=== PATIENT | female | born 1975 | race Caucasian/White ===

== ENCOUNTER 2019-03-03 06:28 | Emergency (ER) | payer MEDICAID, SELFPAY ==
[2019-03-03 06:31] VITALS: BP 116/77; PULSE 84; RESP 16; TEMP 36.8; O2SAT 100
--- NOTE | 2019-03-03 06:32 | ED.GENADUL_ITS ---
Discharge Plan Disposition Patient Disposition: HOME Condition: Good Discharge Details Chief Complaint: Urinary Clinical Impression: UTI (urinary tract infection) Primary Care Provider: CHARY MCLAIN ED Provider: Xu Schuler Home Meds and New Rx's Prescriptions: New cephalexin [Keflex] 500 mg capsule 500 mg PO BID 5 Days Qty: 10 RF: 0 No Action albuterol sulfate [Ventolin HFA] 8 GM HFA aerosol inhaler 2 puff Inhalation Q4H PRN RF: 0 fluticasone propion-salmeterol [Advair Diskus] 1 EACH blister with device 1 puff Inhalation BID Qty: 1 RF: 3 clonazepam 2 MG tablet 1 mg PO BID PRNQty: 14 RF: 0 epinephrine [EpiPen] 0.3 MG/0.3 ML auto-injector 0.3 mg IJ PRN PRN (Reason: Anaphylaxis) Qty: 1 RF: 0 ipratropium-albuterol 3 ML solution for nebulization 3 ml Inhalation Q4H PRN PRNQty: 60 RF: 0 dextroamphetamine-amphetamine [Adderall] 20 mg Tablet 20 mg PO TID RF: 0 Discharge Instructions Instructions: Urinary Tract Infection in Women (ED) Additional Instructions: Please take the antibiotic as directed. Please drink 10 to 12 cups of water per day. If you notice any worsening of your symptoms, or any new symptoms such as vomiting, diarrhea, fever, chills, shortness of breath, chest pain, numbness, weakness, or fainting , please return immediately to the emergency department for reevaluation. Please follow up with your primary care provider as soon as possible for reassessment and reevaluation. As always, it was a pleasure participating in your medical care today. Referrals: CHARY MCLAIN [Primary Care Provider] - Medical Decision Making This is a pleasant 43-year-old female who presents today for evaluation of UTI. Patient states that over the last 24 to 48 hours she is burning, dysuria and increased urinary frequency. She denies any red flags of fever, chills or flank pain. No abdominal pain or vomiting. Exam demonstrates a nontender abdomen, no suprapubic tenderness. We will evaluate for UTI, and reassess. No clinical evidence of pyelonephritis at this time. Patient's urinalysis has returned, patient's urinalysis is clinically consistent with UTI. She has no history of kidney stones. We will prescribe Keflex for home use. We discussed red flags which return, the importance of hydration and close follow-up. I have extensively reviewed the treatment plan and discharge instructions with the patient and their family. I have addressed all patient concerns at this time. The patient and family was made aware of what symptoms to monitor for that would warrant a return to the emergency department. Discussed the plan with the patient and family, they demonstrate verbal understanding and agreement with our assessment and plan at this time. HPI General Date/Time Provider Initiated Documentation: 03/03/19 06:30 . HPI Narrative: This is a pleasant 43-year-old female who presents today for evaluation of UTI-like symptoms. Patient states that for the last 24 to 48 omari rs she has had burning, dysuria, increased urinary frequency. She denies any history of vaginal discharge or history of STDs. She states that this feels similar to previous UTIs. She denies any flank pain, fever, chills, abdominal pain, nausea vomiting or diarrhea. She has no other complaints at this time. No other modifying factors. She denies any aggravating or relieving factors. She denies any radiation of the pain. Related Data Home Medications Medication Instructions Recorded Confirmed albuterol sulfate [Ventolin HFA] 2 puff INHALATION Q4H PRN inhaler 05/16/15 03/03/19 fluticasone propion-salmeterol 1 puff INHALATION BID #1 disk 08/24/15 03/03/19 [Advair Diskus] clonazepam 1 mg PO BID PRN #14 tab-cap 08/26/15 03/03/19 ipratropium-albuterol 3 ml INHALATION Q4H PRN PRN #60 08/09/16 03/03/19 vial epinephrine [Epipen] 0.3 mg IJ PRN PRN #1 auto.injct 12/14/17 03/03/19 cephalexin [Keflex] 500 mg PO BID 5 Days #10 cap 03/03/19 dextroamphetamine-amphetamine 20 mg PO TID 03/03/19 03/03/19 [Adderall] Previous Rx's Medication Instructions Recorded ipratropium-albuterol 3 ml INHALATION Q4H PRN PRN #60 08/09/16 vial epinephrine [Epipen] 0.3 mg IJ PRN PRN #1 auto.injct 12/14/17 cephalexin [Keflex] 500 mg PO BID 5 Days #10 cap 03/03/19 Allergies Allergy/AdvReac Type Severity Reaction Status Date / Time prochlorperazine Allergy Severe rigidity Unverified 03/03/19 06:40 [From Compazine] prochlorperazine edisylate Allergy Severe rigidity Unverified 03/03/19 06:40 [From Compazine] prochlorperazine maleate Allergy Severe rigidity Unverified 03/03/19 06:40 [From Compazine] sulfamethoxazole Allergy Unverified 03/03/19 06:40 [From Bactrim] trimethoprim [From Bactrim] Allergy Unverified 03/03/19 06:40 Review of Systems Review of Systems All systems reviewed & are unremarkable except as noted in HPI and below PFSH Medical History (Updated 03/03/19 @ 06:36 by Kelly Peoples) ADHD (Acute) Anxiety and depression Asthma HGSIL (high grade squamous intraepithelial dysplasia) Family History Mother Essential hypertension Grandmother Alcohol abuse Essential hypertension Personal history of malignant neoplasm Grandfather Personal history of malignant neoplasm Social History Smoking/Tobacco Use Status: Current every day Alcohol Intake: current Alcohol Intake frequency: holidays/special occasions only Alcohol type: beer Drug use: Daily Substance use type: marijuana Do you feel safe in your relationship?: Yes Exam Narrative Exam Narrative: 1.Const: Well-nourished, Well-developed, appearing stated age 2.Eyes: PERRL, no conjunctival injection, and symmetrical lids. 3.ENT: Atraumatic external nose and ears. Moist MM. Neck: Symmetric, trachea midline, No thyromegaly. 4.CVS: +S1/S2, No murmurs or gallops. Peripheral pulses 2+ and equal in all extremities. Brisk capillary refill in all extremities. 5.RESP: Unlabored respiratory effort. Clear to auscultation bilaterally. No wheezes rales or rhonchi 6.GI: Soft, Nontender/Nondistended, No hepatosplenomegaly. No guarding or rebound. No flank, CVA, or suprapubic tenderness. 7.MSK: Normocephalic/Atraumatic, Extremities w/o deformity or ttp No cyanosis or clubbing, Normal movement of all extremities 8.Skin: Warm, Dry. No rashes or lesions. 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 Sensation grossly intact, no focal neurologic deficits. 10.Psych: (AAO) x3. Appropriate mood and affect
[2019-03-03 06:45] LABS: Bilirubin Small (Negative); Blood Moderate (Negative); Clarity Clear (Clear); Glucose 100 mg/dL (Negative); Ketones 15 mg/dL (Negative); Leukocyte Esterase Small (Negative); Nitrite Positive (Negative); Specific Gravity >= 1.030 (1.005-1.025); pH 5.5 (5-8)
[2019-03-03 07:01] LABS: Bacteria Rare HPF (Negative); C & S Indicated? Yes; Casts Negative LPF (Negative); Crystals Moderate Uric Acid HPF (Negative); Epithelial Cells Moderate HPF (Negative); Mucus Trace (Negative)
[2019-03-03] MEDS: Cephalexin 500 MG CAP PO (07:11)
== END 2019-03-03 07:15 | disposition home or self-care (01) ==
PROVIDERS: Emergency Provider Student in an Organized Health Care Education/Training Program; PCP Nurse Practitioner Adult Health
DX: N39.0 Urinary tract infection, site not specified (principal); B96.20 Unspecified Escherichia coli [E. coli] as the cause of diseases classified elsewhere
CPT/HCPCS: 87077; 99283; 81003; 81015; 87086; 87186

== ENCOUNTER 2019-06-14 07:25 | Emergency (ER) | payer MEDICAID, SELFPAY ==
[2019-06-14 07:33] VITALS: BP 134/84; PULSE 95; RESP 16; TEMP 36.7; O2SAT 100
--- NOTE | 2019-06-14 07:41 | ED.GENADUL_ITS ---
Discharge Plan Disposition Patient Disposition: HOME Condition: Good Discharge Details Chief Complaint: Urinary Clinical Impression: UTI (urinary tract infection) Primary Care Provider: Maxine Kwan ED Provider: Xu Schuler Home Meds and New Rx's Prescriptions: New cephalexin [Keflex] 500 mg capsule 500 mg PO QID 7 Days Qty: 28 RF: 0 No Action albuterol sulfate [Ventolin HFA] 8 GM HFA aerosol inhaler 2 puff Inhalation Q4H PRN RF: 0 fluticasone propion-salmeterol [Advair Diskus] 1 EACH blister with device 1 puff Inhalation BID Qty: 1 RF: 3 clonazepam 2 MG tablet 1 mg PO BID PRNQty: 14 RF: 0 epinephrine [EpiPen] 0.3 MG/0.3 ML auto-injector 0.3 mg IJ PRN PRN (Reason: Anaphylaxis) Qty: 1 RF: 0 ipratropium-albuterol 3 ML solution for nebulization 3 ml Inhalation Q4H PRN PRNQty: 60 RF: 0 dextroamphetamine-amphetamine [Adderall] 20 mg Tablet 20 mg PO TID RF: 0 Discharge Instructions Instructions: Urinary Tract Infection in Women (ED) Additional Instructions: At this time he do show evidence of urinary tract infection. Please take the antibiotic as directed. Please continue to drink plenty of cranberry juice. We will send a referral to the local urologist Dr. Esparza. He will be contacted by their office. Will likely be 1 to 2 months or more until follow-up. If you notice any worsening of your symptoms, or any new symptoms such as vomiting, diarrhea, fever, chills, shortness of breath, chest pain, numbness, weakness, or fainting , please return immediately to the emergency department for reevaluation. Please follow up with your primary care provider as soon as possible for reassessment and reevaluation. As always, it was a pleasure participating in your medical care today. Referrals: Maxine Kwan [Primary Care Provider] - Medical Decision Making This is a pleasant 43-year-old female with a past medical history of previous urinary tract infections, appendectomy, asthma and ADHD. She presents today for signs and symptoms concerning with a urinary tract infection. 24 to 48 hours of burning, frequency, consistent with her previous urinary tract infections that she has had. Her last urinary tract infection was in February, at which time she had E. coli which was pansensitive. Physical exam demonstrates no clinical evidence of pyelonephritis. No flank or CVA tenderness. No fever. Urinalysis is obfuscated by Pyridium, however signs and symptoms and UA is clinically concerning for UTI. We will send for culture. We will start with Keflex, and recommend close follow-up. With the patient's recurrent UTIs her primary care provider has recommended urology follow-up, we will place an outpatient referral for her. I have extensively reviewed the treatment plan and discharge instructions with the patient. I have addressed all patient concerns at this time. The patient was made aware of what symptoms to monitor for that would warrant a return to the emergency department. Discussed the plan with the patient, they demonstrate verbal understanding and agreement with our assessment and plan at this time. HPI General Date/Time Provider Initiated Documentation: 06/14/19 07:27 . HPI Narrative: This is a pleasant 43-year-old female who presents today for evaluation of UTI-like symptoms. Patient states that for the last 24 to 48 hours she has had burning, dysuria, increased urinary frequency. She denies any history of vaginal discharge or history of STDs. She states that this feels similar to previous UTIs. She denies any flank pain, or fever, abdominal pain, nausea vomiting or diarrhea. She does admit to occasional chills. She has no other complaints at this time. No other modifying factors. She denies any aggravating or relieving factors. She denies any radiation of the pain. Of note her last urinary tract infection was in February. Her primary care provider has recommended that she follow-up with urology. This referral has not been placed. Related Data Home Medications Medication Instructions Recorded Confirmed albuterol sulfate [Ventolin HFA] 2 puff INHALATION Q4H PRN inhaler 05/16/15 03/03/19 fluticasone propion-salmeterol 1 puff INHALATION BID #1 disk 08/24/15 03/03/19 [Advair Diskus] clonazepam 1 mg PO BID PRN #14 tab-cap 08/26/15 03/03/19 ipratropium-albuterol 3 ml INHALATION Q4H PRN PRN #60 08/09/16 03/03/19 vial epinephrine [Epipen] 0.3 mg IJ PRN PRN #1 auto.injct 12/14/17 03/03/19 dextroamphetamine-amphetamine 20 mg PO TID 03/03/19 03/03/19 [Adderall] cephalexin [Keflex] 500 mg PO QID 7 Days #28 cap 06/14/19 Previous Rx's Medication Instructions Recorded ipratropium-albuterol 3 ml INHALATION Q4H PRN PRN #60 08/09/16 vial epinephrine [Epipen] 0.3 mg IJ PRN PRN #1 auto.injct 12/14/17 cephalexin [Keflex] 500 mg PO QID 7 Days #28 cap 06/14/19 Allergies Allergy/AdvReac Type Severity Reaction Status Date / Time prochlorperazine Allergy Severe rigidity Unverified 06/14/19 07:36 [From Compazine] prochlorperazine edisylate Allergy Severe rigidity Unverified 06/14/19 07:36 [From Compazine] prochlorperazine maleate Allergy Severe rigidity Unverified 06/14/19 07:36 [From Compazine] sulfamethoxazole Allergy Unverified 06/14/19 07:36 [From Bactrim] trimethoprim [From Bactrim] Allergy Unverified 06/14/19 07:36 General Stated Complaint: Urinary SUZI: 4 Review of Systems All systems reviewed & are unremarkable except as noted in HPI and below PFSH Medical History (Updated 03/03/19 @ 06:36 by Kelly Peoples) ADHD (Acute) Anxiety and depression Asthma HGSIL (high grade squamous intraepithelial dysplasia) Family History Mother Essential hypertension Grandmother Alcohol abuse Essential hypertension Personal history of malignant neoplasm pancreatic CA Grandfather Personal history of malignant neoplasm pancreatic CA Social History Smoking/Tobacco Use Status: Current every day Alcohol Intake: current Alcohol Intake frequency: holidays/special occasions only Alcohol type: beer Drug use: Daily Substance use type: marijuana Do you feel safe in your relationship?: Yes Exam Narrative Exam Narrative: 1.Const: Well-nourished, Well-developed, appearing stated age 2.Eyes: PERRL, no conjunctival injection, and symmetrical lids. 3.ENT: Atraumatic external nose and ears. Moist MM. Neck: Symmetric, trachea midline, No thyromegaly. 4.CVS: +S1/S2, No murmurs or gallops. Peripheral pulses 2+ and equal in all extremities. Brisk capillary refill in all extremities. 5.RESP: Unlabored respiratory effort. Clear to auscultation bilaterally. No wheezes rales or rhonchi 6.GI: Soft, Nontender/Nondistended, No hepatosplenomegaly. No guarding or rebound. No suprapubic tenderness. No flank or CVA tenderness. No pain at McBurney's point, negative Mendoza sign. 7.MSK: Normocephalic/Atraumatic, Extremities w/o deformity or ttp No cyanosis or clubbing, Normal movement of all extremities 8.Skin: Warm, Dry. No rashes or lesions. 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 Sensation grossly intact, no focal neurologic deficits. 10.Psych: (AAO) x3. Appropriate mood and affect Course Vital Signs Vital signs: Vital Signs Temperature 36.7 C 06/14/19 07:33 Pulse 95 H 06/14/19 07:33 Respiratory Rate 16 06/14/19 07:33 Blood Pressure 134/84 06/14/19 07:33 Pulse Oximetry 100 06/14/19 07:33 Temperature 36.7 C 06/14/19 07:33 Temperature Source Skin 06/14/19 07:33 Pulse 95 H 06/14/19 07:33 Respiratory Rate 16 06/14/19 07:33 Respiratory Effort Non-Labored 06/14/19 07:36 Blood Pressure 134/84 06/14/19 07:33 Blood Pressure Position Sitting 06/14/19 07:33 Pulse Oximetry 100 06/14/19 07:33 Oxygen Delivery Method Room Air 06/14/19 07:33 Oxygen Flow Rate 0 06/14/19 07:33 Pain Level 5 06/14/19 07:37
[2019-06-14] MEDS: Cephalexin 500 MG CAP PO (08:07)
[2019-06-14 08:16] LABS: Clarity Sl Cloudy (Clear)
[2019-06-14 08:19] LABS: Bacteria Moderate HPF (Negative); C & S Indicated? Yes; Casts Negative LPF (Negative); Crystals Negative HPF (Negative); Epithelial Cells Few HPF (Negative); Mucus Negative (Negative); Other Cells Few Transitional (Negative); WBC >50 HPF (0-5)
--- NOTE | 2019-06-14 08:32 | NUR.NOTE ---
Referral faxed to [facility], Urology.Nursing Note:
== END 2019-06-14 08:29 | disposition home or self-care (01) ==
PROVIDERS: Emergency Provider Student in an Organized Health Care Education/Training Program; PCP Nurse Practitioner Adult Health
DX: N39.0 Urinary tract infection, site not specified (principal); B96.20 Unspecified Escherichia coli [E. coli] as the cause of diseases classified elsewhere
CPT/HCPCS: 87077; 99283; 81003; 81015; 87086; 87186

== ENCOUNTER 2019-07-05 20:10 | Emergency (ER) | payer MEDICAID, SELFPAY ==
[2019-07-05 20:27] VITALS: BP 103/65; PULSE 80; RESP 16; TEMP 36.6; O2SAT 98
[2019-07-05 20:42] LABS: Bilirubin Negative (Negative); Blood Negative (Negative); Clarity Sl Cloudy (Clear); Glucose Negative (Negative); Ketones Trace mg/dL (Negative); Leukocyte Esterase Trace (Negative); Nitrite Positive (Negative); Specific Gravity >= 1.030 (1.005-1.025)
--- NOTE | 2019-07-05 20:44 | ED.GENADUL_ITS ---
Discharge Plan Disposition Patient Disposition: HOME Discharge Details Chief Complaint: Abd Prob Clinical Impression: Epigastric abdominal pain, Cystitis Primary Care Provider: Maxine Kwan ED Provider: Mitesh Chauhan Home Meds and New Rx's Prescriptions: New ciprofloxacin HCl 500 mg tablet 500 mg PO BID Qty: 14 RF: 0 phenazopyridine [Pyridium] 200 mg tablet 200 mg PO TID PRN (Reason: pain) Qty: 6 RF: 0 fluconazole [Diflucan] 150 mg tablet 150 mg PO DAILY 2 Days Qty: 2 RF: 0 Continued albuterol sulfate [Ventolin HFA] 8 GM HFA aerosol inhaler 2 puff Inhalation Q4H PRN RF: 0 fluticasone propion-salmeterol [Advair Diskus] 1 EACH blister with device 1 puff Inhalation BID Qty: 1 RF: 3 clonazepam 2 MG tablet 1 mg PO BID PRNQty: 14 RF: 0 epinephrine [EpiPen] 0.3 MG/0.3 ML auto-injector 0.3 mg IJ PRN PRN (Reason: Anaphylaxis) Qty: 1 RF: 0 ipratropium-albuterol 3 ML solution for nebulization 3 ml Inhalation Q4H PRN PRNQty: 60 RF: 0 dextroamphetamine-amphetamine [Adderall] 20 mg Tablet 20 mg PO TID RF: 0 Discharge Instructions Additional Instructions: you need to follow up with urology for your frequent uti's and the gas bubbles seen in your bladder on the cat scan follow up with your primary care provider within 1-2 weeks if you feel more ill, have high fevers or severe worsening pain return to the emergency department Medical Decision Making 43 yo female with hx of frequent uti's and was tx'd for one in June that grew pansensitive e coli, prior appendectomy, smoker, who comes in with cc of epigastric and suprapubic pain. She states she does have a hx of gerd/gastritis but feels this is worse. Denies radiation of pain, n/v, fevers, chest pain or sob. She has tenderness in the epgiastric area and rlq on exam. I suspect recurrent uti and gastritis, but given worsening symptoms will obtain renal colic ct to eval for kidney stone and also obtain lipase to eval for pancreatitis. Unlikely acs, heart score is 2 and pain is reproducible on exam. pt's blood work shows no acute findings, does have what appears to be recurrent uti. CT shows perinephric fat stranding of pancreas but has normal lipase level. Also has nonspecific retroperitoneal fluid collection and minute gas bubbles in the bladder which could be from infection vs fistula as she did not have catheter placed. Her epigastric pain has resolved so doubt pancreatitis. Carlos lrestart abx and she needs to f/u with urology for her recurrent uti's and the questionable fistula. She understands she needs to return immediately if worsening Differential Diagnosis Differential Diagnosis: pancreatitis, gastritis, cystitis, kidney stone Medical Records Medical records reviewed: Yes I reviewed the patient's medical records. Imaging Data Radiologic Study: Attestation: I personally reviewed and interpreted this imaging study as follows: Imaging: CT Scan Radiologist's impression: IMPRESSION: 1. Subtle peripancreatic fat stranding could reflect the presence of acute pancreatitis. 2. Nonspecific retroperitoneal fluid collection could also be as a result of acute pancreatitis. Other etiologies not excluded. 3. Minute gas bubbles in bladder, possibly introduced at the time of catheterization. Other etiologies including infection and fistula not excluded. 4. Perivesical fat stranding as could be seen with cystitis. Lab Data Lab results reviewed: Yes I reviewed the patient's lab results. ECG Data Attestation: I personally reviewed and interpreted this ECG (s) as follows: Prior ECG tracings: not available for review Interpretation: sinus rhythm, rate of 75, pr 162, no acute st t wave ischemic findings HPI General Mode of arrival: ambulatory . Date/Time Provider Initiated Documentation: 07/05/19 20:27 . Limitations to Documentation: no limitations . Information obtained by: patient . History of Present Illness 43 year old F presents to the emergency department with the chief complaint of epigastric and suprapubic pain, described as moderate, Patient started experiencing this day(s) (3) and it has been constant. No relieving factors improve symptom(s), No exacerbating factors reported . Patient did receive the following treatments prior to arrival, none Related Data Home Medications Medication Instructions Recorded Confirmed albuterol sulfate [Ventolin HFA] 2 puff INHALATION Q4H PRN inhaler 05/16/15 03/03/19 fluticasone propion-salmeterol 1 puff INHALATION BID #1 disk 08/24/15 03/03/19 [Advair Diskus] clonazepam 1 mg PO BID PRN #14 tab-cap 08/26/15 03/03/19 ipratropium-albuterol 3 ml INHALATION Q4H PRN PRN #60 08/09/16 03/03/19 vial epinephrine [EpiPen] 0.3 mg IJ PRN PRN #1 auto.injct 12/14/17 03/03/19 dextroamphetamine-amphetamine 20 mg PO TID 03/03/19 03/03/19 [Adderall] ciprofloxacin HCl 500 mg PO BID #14 tab 07/05/19 fluconazole [Diflucan] 150 mg PO DAILY 2 Days #2 tab 07/05/19 phenazopyridine [Pyridium] 200 mg PO TID PRN #6 tab 07/05/19 Previous Rx's Medication Instructions Recorded ipratropium-albuterol 3 ml INHALATION Q4H PRN PRN #60 08/09/16 vial epinephrine [EpiPen] 0.3 mg IJ PRN PRN #1 auto.injct 12/14/17 ciprofloxacin HCl 500 mg PO BID #14 tab 07/05/19 fluconazole [Diflucan] 150 mg PO DAILY 2 Days #2 tab 07/05/19 phenazopyridine [Pyridium] 200 mg PO TID PRN #6 tab 07/05/19 Allergies Allergy/AdvReac Type Severity Reaction Status Date / Time prochlorperazine Allergy Severe rigidity Unverified 06/14/19 07:36 [From Compazine] prochlorperazine edisylate Allergy Severe rigidity Unverified 06/14/19 07:36 [From Compazine] prochlorperazine maleate Allergy Severe rigidity Unverified 06/14/19 07:36 [From Compazine] sulfamethoxazole Allergy Unverified 06/14/19 07:36 [From Bactrim] trimethoprim [From Bactrim] Allergy Unverified 06/14/19 07:36 General Stated Complaint: Abd Prob SUZI: 3 Review of Systems All systems reviewed & are unremarkable except as noted in HPI and below Constitutional Constitutional: Denies chills, Denies fever(s) and Denies weakness Cardiovascular Cardiovascular: Denies chest pain and Denies dyspnea Respiratory Respiratory: Denies cough and Denies dyspnea Gastrointestinal Gastrointestinal: Denies vomiting Musculoskeletal Musculoskeletal: Denies joint swelling Integumentary/Breasts Skin/Breast: Denies rash Neurologic Neurologic: Denies weakness [facility] Medical History (Updated 03/03/19 @ 06:36 by Kelly Peoples) ADHD (Acute) Anxiety and depression Asthma HGSIL (high grade squamous intraepithelial dysplasia) Family History Mother Essential hypertension Grandmother Alcohol abuse Essential hypertension Personal history of malignant neoplasm pancreatic CA Grandfather Personal history of malignant neoplasm pancreatic CA Social History Smoking/Tobacco Use Status: Current every day Alcohol Intake: never Drug use: Daily Substance use type: marijuana Do you feel safe in your relationship?: Yes Exam Const General: no acute distress Orientation: alert HENMT Head: normal to inspection Ears: external ears normal General nose exam: external nose normal Mouth: moist mucous membranes Eyes General: appearance normal, both eyes and all related structures Neck Neck: normal visual inspection Resp Effort & Inspection: normal respiratory effort and able to speak in complete sentences Cardio Rate: regular rate GI Palpation: soft Skin General skin exam: no rashes or lesions noted Neuro General: alert and oriented x3 Extrem General: normal to inspection Psych Mental Status: mental status grossly normal Course Vital Signs Vital signs: Vital Signs Temperature 36.6 C 07/05/19 20:27 Pulse 80 07/05/19 20:27 Respiratory Rate 16 07/05/19 20:27 Blood Pressure 103/65 07/05/19 20:27 Pulse Oximetry 98 07/05/19 20:27 Temperature 36.6 C 07/05/19 20:27 Temperature Source Temporal Artery Scan 07/05/19 20:27 Pulse 80 07/05/19 20:27 Respiratory Rate 16 07/05/19 20:27 Respiratory Effort 07/05/19 20:37 Blood Pressure 103/65 07/05/19 20:27 Pulse Oximetry 98 07/05/19 20:27 Oxygen Delivery Method Room Air 07/05/19 20:27 Oxygen Flow Rate 0 07/05/19 20:27 Pain Level 6 07/05/19 20:27 Lab/Test Results Lab/Test Results: Laboratory Tests Range/Units 07/05/19 20:30 Urine Color (Yellow) Yellow Urine Clarity (Clear) Sl cloudy Urine pH (5-8) 6.0 Ur Specific [place] (1.005-1.025) >= 1.030 H Urine Protein (Negative) mg/dL Negative Urine Ketones (Negative) mg/dL Trace H Urine Blood (Negative) Negative Urine Nitrite (Negative) Positive H Urine Bilirubin (Negative) Negative Urine Urobilinogen (Up TO 0.2) EU/dL 1.0 H Ur Leukocyte Esterase (Negative) Trace H Urine Glucose (Negative) mg/dL Negative
[2019-07-05 21:13] LABS: Bacteria Moderate HPF (Negative); C & S Indicated? Yes; Crystals Negative HPF (Negative); Epithelial Cells Moderate HPF (Negative); Mucus Negative (Negative); Other Cells Few Renal (Negative); RBC 0-2 HPF (0-2); WBC >50 HPF (0-5)
[2019-07-05 21:24] LABS: Abs Immature Grans 0.03 k/cumm (0.0-0.09); Absolute Basophil Count 0.02 k/cumm (0.0-0.2); Absolute Eosinophil Count 0.19 k/cumm (0.0-0.7); Absolute Lymphocyte Count 2.87 k/cumm (1.2-3.4); Absolute Neutrophil Count 6.68 k/cumm (1.2-6.7); Basophils % 0.2; Eosinophils % 1.8; HCT 38.6 % (36.0-46.0); HGB 12.9 g/dL (12.0-15.5); Immature Grans % 0.3; Lymphocytes % 26.8; Mean Corp. HGB Concentration 33.4 g/dL (32.0-36.0); Mean Corpuscular Hemoglobin 28.9 pg (27.0-33.0); Mean Corpuscular Volume 86.4 fL (80-95); Mean Platelet Volume 8.7 fL (8.0-11.0); Monocytes % 8.4; Neutrophils % 62.5; Platelet Count 434 x1000/uL (130-400); RBC 4.47 m/cumm (4.00-5.20); RBC Distribution Width 14.5 % (11.7-14.6); White Blood Cell Count 10.69 k/cumm (4.4-10.8)
--- NOTE | 2019-07-05 21:32 | DI.CT_ITS ---
EXAM: CT RENAL COLIC WO CLINICAL HISTORY: right flank pain,urinary symptoms TECHNIQUE: The exam was performed according to the usual protocol without contrast. COMPARISON: No exams were available for comparison FINDINGS: Mild dependent atelectatic changes are seen in the lung bases. The superior aspect of the liver was not included on this renal colic CT scan. The visualized liver is unremarkable. The unenhanced visualized portions of the spleen, gallbladder, bile ducts and adrenal glands are unre markable. The pancreas is normal in size and appearance. There is mild increased attenuation of the peripancre atic fat posteriorly. This may reflect mild acute pancreatitis. The kidneys show no evidence of nephrolithiasis or hydronephrosis. The urinary bladder is intact. T here are a few tiny bubbles of air in the dependent portion of the urinary bladder. This may be due to recent catheterization, please correlate clinically. There is mild increased attenuation in the f at adjacent to the urinary bladder and a mild cystitis cannot be excluded. The reproductive organs are unremarkable as visualized. The bowel shows no evidence of obstruction or inflammation. An appendix is not visualized. No evide nce of acute appendicitis are present. There is a small amount of free fluid in the mesentery anterior to the distal abdominal aorta. Incre ased attenuation in the mesentery is noted. No significant abdominal or pelvic adenopathy or pneumoperitoneum is present. Note is made of a small fat containing umbilical hernia. Mild degenerative changes are seen in the spine. IMPRESSION: 1. Subtle peripancreatic fat stranding which could reflect an acute pancreatitis. Please correlate c linically. 2. Nonspecific mesenteric fluid and retroperitoneal fluid. This may be the result of acute pancreati tis. Other etiologies cannot be excluded. 3. Small bubbles of gas seen in the urinary bladder, this may reflect recent catheterization. Please correlate clinically. 4. Mild stranding seen around the urinary bladder. This may represent an infectious or inflammatory cystitis.
[2019-07-05] MEDS: Phenazopyridine 200 MG TAB PO (21:36)
[2019-07-05 21:42] LABS: ALT 15 U/L (14-59); AST 12 U/L (15-37); Albumin 3.3 g/dL (3.4-5.0); Alkaline Phosphatase 69 U/L (46-116); Anion Gap 8.8 mmol/L (3-11); BUN 20 mg/dL (7-18); Bilirubin, Total 0.2 mg/dL (0.2-1.0); CO2 26.2 mmol/L (21.0-32.0); CREATININE 0.79 mg/dL (0.55-1.02); Calcium 8.2 mg/dL (8.5-10.1); Chloride 105 mmol/L (98-107); Glucose 93 mg/dL (74-106); Lipase 259 U/L (73-393); NT-proBNP 40 pg/mL (<300); Potassium 3.9 mmol/L (3.5-5.1); Sodium 140 mmol/L (136-145); Total Protein 6.1 g/dL (6.4-8.2); Troponin I < 0.05 ng/Ml (<0.06)
--- NOTE | 2019-07-05 22:01 | DI.VRAD_ITS ---
PROCEDURE INFORMATION: Exam: CT Abdomen And Pelvis Without Contrast Exam date and time: 07/05/2019 9:29 PM Age: 43 years old Clinical history: Prior surgery; Surgery date: 6+ months; Surgery type: , leep, appendectomy; Patient HX: R flank pain for 3 days TECHNIQUE: Imaging protocol: Computed tomography of the abdomen and pelvis without contrast. Radiation optimization: All CT scans at this facility use at least one of these dose optimization techniques: automated exposure control; mA and/or kV adjustment per patient size (includes targeted exams where dose is matched to clinical indication); or iterative reconstruction. COMPARISON: No relevant prior studies available. FINDINGS: Lungs: There is minimal bibasilar atelectasis. Liver: Upper most portion of the liver not imaged. Visualized liver normal in contour and attenuation. Gallbladder and bile ducts: Normal. No calcified stones. No ductal dilation. Pancreas: There is subtle peripancreatic fat stranding dorsally. No ductal dilatation. Gland is normal in size. Spleen: Normal. No splenomegaly. Adrenals: Normal. No mass. Kidneys and ureters: No radiopaque renal, ureteric or bladder calculi. No hydronephrosis. Stomach and bowel: Unremarkable. No obstruction. No mucosal thickening. Appendix: Prior appendectomy. Intraperitoneal space: There is a small amount of free intraperitoneal fluid present. Small irregularly shaped retroperitoneal fluid collection, ventrally the distal aorta, series 2, image 72. Vasculature: Unremarkable. No abdominal aortic aneurysm. Lymph nodes: Unremarkable. No enlarged lymph nodes. Bladder: Tiny gas bubbles in bladder lumen. No bladder wall thickening. Subtle perivesical fat stranding. Reproductive: Unremarkable as visualized. Bones/joints: Unremarkable. No acute fracture. Soft tissues: There is an uncomplicated fat-containing umbilical hernia. IMPRESSION: 1. Subtle peripancreatic fat stranding could reflect the presence of acute pancreatitis. 2. Nonspecific retroperitoneal fluid collection could also be as a result of acute pancreatitis. Other etiologies not excluded. 3. Minute gas bubbles in bladder, possibly introduced at the time of catheterization. Other etiologies including infection and fistula not excluded. 4. Perivesical fat stranding as could be seen with cystitis. Dictated and Authenticated by: Brad Null MD. Ordering:SHILO Sagastume MD
[2019-07-05] MEDS: Ciprofloxacin 500 MG TAB (22:25)
[2019-07-05 22:28] VITALS: BP 100/72; PULSE 82; RESP 16; TEMP 36.8; O2SAT 100
--- NOTE | 2019-07-05 22:30 | NUR.NOTE ---
IV removed. Discharge instructions reviewed with verbal understanding. aware to f/u with pcp and urology as needed. Ambulated to exit with steady gait.
== END 2019-07-05 22:30 | disposition home or self-care (01) ==
PROVIDERS: Emergency Provider Emergency Medicine; PCP Nurse Practitioner Adult Health
DX: R10.13 Epigastric pain (principal); N30.90 Cystitis, unspecified without hematuria; R93.41 Abnormal radiologic findings on diagnostic imaging of renal pelvis, ureter, or bladder; Z87.440 Personal history of urinary (tract) infections
CPT/HCPCS: 36415; 80053; 81025; 83690; 87077; 93005; 99285; 74176; 81003; 81015; 83880; 84484; 85025; 87086; 87186; 93010